=== PATIENT | female | born 1975 | race Two or more races ===

== ENCOUNTER 2017-11-08 11:24 | Outpatient (CLI) | payer OTHER | END 2017-11-08 11:33 | disposition home or self-care (01) | LOC: SONOGRAMA 11:24 | DX: N92.0 Excessive and frequent menstruation with regular cycle (principal); N64.0 Fissure and fistula of nipple ==

== ENCOUNTER 2018-09-28 07:07 | Day surgery (SDC) | payer OTHER ==
[~2018-09-28 07:07] MED LIST: [UNRECOGNIZED DRUG - REMARK]
[2018-09-28] MEDS ORDERED: TYLENOL-CODEINE1 TA1 PO (11:21)
[2018-09-28] MEDS ORDERED: AVIDOXY100 MG PO (11:21)
== END 2018-09-28 12:35 | disposition home or self-care (01) ==
LOC: CIR.AMB 07:07
DX: D25.0 Submucous leiomyoma of uterus (principal); N84.0 Polyp of corpus uteri